=== PATIENT | female | born 1965 | race Caucasian/White ===

== ENCOUNTER 2021-06-28 12:38 | Inpatient (IN) | payer OTHER ==
[~2021-06-28] VITALS: Ht 162.6 cm; Wt 75.8 kg
[2021-06-28 13:04] LABS: HEMATOCRIT 43.5 % (36-48); MEAN CORPUSCULAR HEMOGLOBIN 33.1 pg (27.0-33.0); MEAN CORPUSCULAR HGB CONC 33.6 g/dL (32.0-36.0); MEAN CORPUSCULAR VOLUME 98.6 fL (79-99); PLATELET COUNT (AUTO) 486 K/uL (130-400); RED BLOOD CELL COUNT(AUTO) 4.41 MIL/uL (4.00-5.50); RED CELL DISTRIBUTION WIDTH 12.6 % (11.0-15.5); WHITE BLOOD COUNT (AUTO) 15.7 K/uL (4.8-10.8)
[2021-06-28 13:21] LABS: CARBON DIOXIDE 27 mmol/L (21-32); CHLORIDE 101 mmol/L (101-111); CREATININE 0.7 mg/dL (0.5-1.5); GLOMERULAR FILTR. RATE CALC 92 mL/min (>60); GLUCOSE,RANDOM 97 mg/dL (70-105); POTASSIUM 4.1 mmol/L (3.5-5.1); SODIUM SERUM 138 mmol/L (136-145); UREA NITROGEN, BLOOD 8 mg/dL (7-18)
[2021-06-28 13:31] LABS: ALANINE AMINOTRANSFERASE 34 U/L (12-78); ALBUMIN 2.7 g/dL (3.5-5.0); ASPARTATE AMINOTRANSFERASE 19 U/L (10-37); BILIRUBIN,TOTAL 0.6 mg/dL (0.2-1.0); CREATINE KINASE, TOTAL 16 U/L (21-232); MYOGLOBIN 22 ng/mL (10-92); TOTAL PROTEIN, SERUM 7.4 g/dL (6.0-8.3)
[2021-06-28 13:32] LABS: LYMPHOCYTES % (MANUAL) 16 % (22-44); MAN.DIFF COMMENT-IMPRESSION MANUAL DIFFERENTIAL; MONOCYTES % (MANUAL) 3 % (2-9); PLATELET MORPHOLOGY COMMENT MARKED INCREASE; SEGMENTED NEUTROPHILS % 81 % (40-70)
[2021-06-28] MEDS ORDERED: IPRATROPIUM/ALBUTEROL SULFATE 3 ML SOLUTION IH ONE (16:00)
[2021-06-28] MEDS ORDERED: AZITHROMYCIN 500MG VIAL IVPB ONE (16:00)
[2021-06-28] MEDS ORDERED: 0.9% NACL 250ML IVPB ONE (16:00)
[2021-06-28] MEDS ORDERED: CEFTRIAXONE 1G VIAL IVP ONE (16:00)
[2021-06-28] MEDS ORDERED: AZITHROMYCIN 500MG+NS 250ML 250 ML IV ONE (16:18)
[2021-06-28 16:47] LABS: ABG BASE EXCESS 1.1 mmol/L (-2.0-3.0); ABG HCO3 23.6 mmol/L (21.0-28.0); ABG OXYGEN SATURATION 93.7 % (95.0-99.0); ABG PCO2 32 mmHg (32-45)
[2021-06-28] MEDS: CEFTRIAXONE 1G VIAL IVP SCH (17:30)
[2021-06-28] MEDS: FUROSEMIDE 20MG VIAL IV SCH (18:41)
[2021-06-28] MEDS: SOLU-MEDROL 40MG VIAL IVP SCH (18:41)
[2021-06-28] MEDS ORDERED: IBUPROFEN 400 MG TABLET ONE (18:46)
[2021-06-28] MEDS: IPRATROPIUM/ALBUTEROL SULFATE 3 ML SOLUTION IH SCH (19:45)
[2021-06-28 20:26] LABS: AMPHET/METH SCREEN,URINE NEGATIVE (NEGATIVE); BARBITURATE SCREEN, URINE NEGATIVE (NEGATIVE); BENZODIAZEPINES SCREEN,URINE NEGATIVE (NEGATIVE); CANNABINOID SCREEN,URINE NEGATIVE (NEGATIVE); COCAINE SCREEN,URINE NEGATIVE (NEGATIVE); OPIATE SCREEN,URINE NEGATIVE (NEGATIVE); PHENCYCLIDINE SCREEN,URINE NEGATIVE (NEGATIVE)
[2021-06-28 23:30] VITALS: BP 170/74
[2021-06-29] MEDS: IPRATROPIUM/ALBUTEROL SULFATE 3 ML SOLUTION IH SCH ×5 (00:24→23:02)
[2021-06-29] MEDS ORDERED: MORPHINE 2 MG SYG IVP ONE (02:00)
[2021-06-29 04:00] VITALS: BP 147/94
[2021-06-29] MEDS: FUROSEMIDE 20MG VIAL IV SCH ×2 (06:26→17:38)
[2021-06-29 08:34] LABS: BASOPHILS % (AUTO) 0.2 % (0.0-5.0); HEMATOCRIT 41.3 % (36-48); LYMPHOCYTES % (AUTO) 5.4 % (21.0-51.0); MEAN CORPUSCULAR HEMOGLOBIN 33.3 pg (27.0-33.0); MEAN CORPUSCULAR HGB CONC 33.4 g/dL (32.0-36.0); MEAN CORPUSCULAR VOLUME 99.8 fL (79-99); MONOCYTES % (AUTO) 1.9 % (3.0-13.0); NEUTROPHILS % (AUTO) 91.7 % (40.0-77.0); PLATELET COUNT (AUTO) 455 K/uL (130-400); RED BLOOD CELL COUNT(AUTO) 4.14 MIL/uL (4.00-5.50); RED CELL DISTRIBUTION WIDTH 12.5 % (11.0-15.5)
[2021-06-29 08:55] LABS: CREATININE 0.9 mg/dL (0.5-1.5); MAGNESIUM 2.1 mg/dL (1.80-2.40)
[2021-06-29] MEDS ORDERED: AZITHROMYCIN 500MG VIAL IVPB SCH (09:00)
[2021-06-29] MEDS ORDERED: 0.9% NACL 250ML 250 ML ONE (09:48)
[2021-06-29] MEDS ORDERED: AZITHROMYCIN 500MG+NS 250ML 250 ML IV ONE (09:48)
[2021-06-29] MEDS: SOLU-MEDROL 40MG VIAL IVP SCH (09:53)
[2021-06-29] MEDS: AZITHROMYCIN IVPB SCH (10:09)
[2021-06-29] MEDS: NACL 0.9% IVPB SCH (10:09)
[2021-06-29] MEDS ORDERED: COMPOUND IV REFRIGERATED 1 EACH IVSOLN MISC PRN (10:30)
[2021-06-29] MEDS ORDERED: IOHEXOL 350 MG/ML 100ML INFUS..BTL IV ONE (11:50)
[2021-06-29 13:13] VITALS: BP 162/91
[2021-06-29 17:12] VITALS: BP 169/91
[2021-06-29] MEDS: CEFTRIAXONE 1G VIAL IVP SCH (17:37)
[2021-06-29] MEDS: IBUPROFEN 200 MG TAB PO PRN (17:43)
[2021-06-29] MEDS ORDERED: HYDRALAZINE 20MG/ML VIAL IV PRN (20:00)
[2021-06-29] MEDS ORDERED: ZOLPIDEM TARTRATE 5 MG TAB PO PRN (21:00)
[2021-06-30] VITALS: BP 141/90
[2021-06-30] MEDS: IBUPROFEN 200 MG TAB PO PRN ×2 (03:44→20:24)
[2021-06-30 04:00] VITALS: BP 128/92
[2021-06-30] MEDS: FUROSEMIDE 20MG VIAL IV SCH ×2 (06:00→17:30)
[2021-06-30] MEDS: IPRATROPIUM/ALBUTEROL SULFATE 3 ML SOLUTION IH SCH ×2 (06:00→18:20)
[2021-06-30 06:13] LABS: BASOPHILS % (AUTO) 0.2 % (0.0-5.0); HEMATOCRIT 38.4 % (36-48); LYMPHOCYTES % (AUTO) 4.8 % (21.0-51.0); MEAN CORPUSCULAR HGB CONC 33.3 g/dL (32.0-36.0); MONOCYTES % (AUTO) 4.2 % (3.0-13.0); NEUTROPHILS % (AUTO) 89.5 % (40.0-77.0); PLATELET COUNT (AUTO) 460 K/uL (130-400); RED BLOOD CELL COUNT(AUTO) 3.88 MIL/uL (4.00-5.50); RED CELL DISTRIBUTION WIDTH 12.5 % (11.0-15.5); WHITE BLOOD COUNT (AUTO) 29.2 K/uL (4.8-10.8)
[2021-06-30 06:19] LABS: CREATININE 0.7 mg/dL (0.5-1.5)
[2021-06-30 07:41] LABS: THYROID STIMULATING HORMONE 0.67 uIU/mL (0.36-3.74)
[2021-06-30 08:14] VITALS: BP 140/76
[2021-06-30] MEDS: SOLU-MEDROL 40MG VIAL IVP SCH (08:52)
[2021-06-30] MEDS: NACL 0.9% IVPB SCH (08:52)
[2021-06-30] MEDS: AZITHROMYCIN IVPB SCH (08:52)
[2021-06-30 11:29] VITALS: BP 162/106
[2021-06-30] MEDS: INSULIN HUMULIN R 100 UNIT/ML 3ML SQ SCH ×3 (11:56→20:22)
[2021-06-30 12:38] LABS: HEMOGLOBIN A1C 6.1 % (4.0-6.0)
[2021-06-30] MEDS: CEFTRIAXONE 2GM VIAL IVP SCH (15:58)
[2021-06-30 16:23] VITALS: BP 149/79
[2021-06-30] MEDS: ALPRAZOLAM 0.5 MG TABLET PO PRN ×2 (17:38→22:02)
[2021-06-30 19:39] LABS: TOTAL PROTEIN, SERUM 7.1 g/dL (6.0-8.3)
[2021-06-30 21:00] LABS: APPEARANCE BODY FLUID CLOUDY (CLEAR); BODY FLUID WBC 570 /cu. mm.; COLOR,BODY FLUID DARK YELLOW (LT YELLOW); SPECIMENTYPE,BODY FLUID PLEURAL; TOTAL VOLUME,BODY FLUID 830 mL
[2021-06-30 21:01] LABS: BODY FLUID RBC 6305 /cu. mm.
[2021-06-30 21:09] LABS: BF LYMPHOCYTE 51 %; BF OTHER CELLS 16
[2021-06-30 21:23] VITALS: BP 139/85
[2021-06-30] MEDS ORDERED: MORPHINE 2 MG SYG ONE (22:00)
[2021-06-30] MEDS ORDERED: ALPRAZOLAM 0.5 MG TABLET PO ONE (22:00)
[2021-07-01] VITALS (7 sets, daily range): BP systolic 114–141; BP diastolic 74–95
[2021-07-01] MEDS: IPRATROPIUM/ALBUTEROL SULFATE 3 ML SOLUTION IH SCH ×5 (00:39→23:51)
[2021-07-01 04:51] LABS: BASOPHILS % (AUTO) 0.2 % (0.0-5.0); HEMATOCRIT 40.1 % (36-48); MEAN CORPUSCULAR HEMOGLOBIN 32.6 pg (27.0-33.0); MEAN CORPUSCULAR HGB CONC 32.7 g/dL (32.0-36.0); MEAN CORPUSCULAR VOLUME 99.8 fL (79-99); MONOCYTES % (AUTO) 5.7 % (3.0-13.0); NEUTROPHILS % (AUTO) 85.3 % (40.0-77.0); PLATELET COUNT (AUTO) 422 K/uL (130-400); RED BLOOD CELL COUNT(AUTO) 4.02 MIL/uL (4.00-5.50); RED CELL DISTRIBUTION WIDTH 12.3 % (11.0-15.5); WHITE BLOOD COUNT (AUTO) 22.9 K/uL (4.8-10.8)
[2021-07-01] MEDS: FUROSEMIDE 20MG VIAL IV SCH ×2 (04:51→18:33)
[2021-07-01 05:07] LABS: CREATININE 0.7 mg/dL (0.5-1.5); POTASSIUM 3.7 mmol/L (3.5-5.1)
[2021-07-01] MEDS: INSULIN HUMULIN R 100 UNIT/ML 3ML SQ SCH ×5 (06:10→21:00)
[2021-07-01] MEDS: AZITHROMYCIN IVPB SCH (10:02)
[2021-07-01] MEDS: NACL 0.9% IVPB SCH (10:02)
[2021-07-01] MEDS: ALPRAZOLAM 0.5 MG TABLET PO PRN ×3 (10:07→22:38)
[2021-07-01] MEDS: CEFTRIAXONE 2GM VIAL IVP SCH (18:33)
[2021-07-01] MEDS ORDERED: MAG/ALUM/SIMETH 30 ML UDCUP ONE (22:20)
[2021-07-01] MEDS: MORPHINE 2 MG SYG IVP PRN (22:25)
[2021-07-01] MEDS ORDERED: MAG/ALUM/SIMETH 30 ML UDCUP PO ONE (22:30)
[2021-07-02 03:10] VITALS: BP 112/69
[2021-07-02] MEDS: FUROSEMIDE 20MG VIAL IV SCH ×2 (04:33→16:54)
[2021-07-02] MEDS: MORPHINE 2 MG SYG IVP PRN (04:44)
[2021-07-02 05:23] LABS: BASOPHILS % (AUTO) 0.6 % (0.0-5.0); EOSINOPHILS % (AUTO) 0.4 % (0.0-8.0); HEMATOCRIT 42.6 % (36-48); LYMPHOCYTES % (AUTO) 17.8 % (21.0-51.0); MEAN CORPUSCULAR HEMOGLOBIN 32.7 pg (27.0-33.0); MEAN CORPUSCULAR HGB CONC 33.6 g/dL (32.0-36.0); MEAN CORPUSCULAR VOLUME 97.5 fL (79-99); NEUTROPHILS % (AUTO) 71.8 % (40.0-77.0); PLATELET COUNT (AUTO) 444 K/uL (130-400); RED BLOOD CELL COUNT(AUTO) 4.37 MIL/uL (4.00-5.50); RED CELL DISTRIBUTION WIDTH 12.5 % (11.0-15.5); WHITE BLOOD COUNT (AUTO) 16.5 K/uL (4.8-10.8)
[2021-07-02] MEDS: INSULIN HUMULIN R 100 UNIT/ML 3ML SQ SCH ×7 (05:34→21:00)
[2021-07-02 05:39] LABS: CREATININE 0.7 mg/dL (0.5-1.5); POTASSIUM 3.6 mmol/L (3.5-5.1)
[2021-07-02] MEDS: IPRATROPIUM/ALBUTEROL SULFATE 3 ML SOLUTION IH SCH ×3 (06:50→18:57)
[2021-07-02] MEDS: FAMOTIDINE 20MG VIAL IV SCH ×2 (07:55→20:10)
[2021-07-02 08:00] VITALS: BP 122/64
[2021-07-02] MEDS: AZITHROMYCIN IVPB SCH (08:02)
[2021-07-02] MEDS: NACL 0.9% IVPB SCH (08:02)
[2021-07-02] MEDS: ALPRAZOLAM 0.5 MG TABLET PO PRN ×3 (08:11→23:23)
[2021-07-02 11:55] VITALS: BP 110/67
[2021-07-02 16:00] VITALS: BP 121/49
[2021-07-02] MEDS: CEFTRIAXONE 2GM VIAL IVP SCH (16:53)
[2021-07-02] MEDS: MAG/ALUM/SIMETH 30 ML UDCUP PO PRN (19:29)
[2021-07-02 20:00] VITALS: BP 114/79
[2021-07-03] VITALS (11 sets, daily range): BP systolic 98–134; BP diastolic 45–78
[2021-07-03] MEDS: IPRATROPIUM/ALBUTEROL SULFATE 3 ML SOLUTION IH SCH ×4 (00:06→18:19)
[2021-07-03] MEDS: FUROSEMIDE 20MG VIAL IV SCH (04:28)
[2021-07-03] MEDS: INSULIN HUMULIN R 100 UNIT/ML 3ML SQ SCH ×7 (05:57→21:23)
[2021-07-03 08:06] LABS: HEMATOCRIT 45.1 % (36-48); MEAN CORPUSCULAR HEMOGLOBIN 32.9 pg (27.0-33.0); MEAN CORPUSCULAR HGB CONC 33.9 g/dL (32.0-36.0); RED BLOOD CELL COUNT(AUTO) 4.65 MIL/uL (4.00-5.50); RED CELL DISTRIBUTION WIDTH 12.7 % (11.0-15.5)
[2021-07-03 08:31] LABS: ALBUMIN 2.8 g/dL (3.5-5.0); BILIRUBIN,TOTAL 0.6 mg/dL (0.2-1.0); CREATININE 0.8 mg/dL (0.5-1.5); POTASSIUM 3.9 mmol/L (3.5-5.1); TOTAL PROTEIN, SERUM 7.6 g/dL (6.0-8.3)
[2021-07-03] MEDS: FAMOTIDINE 20MG VIAL IV SCH ×2 (09:09→21:23)
[2021-07-03] MEDS: ALPRAZOLAM 0.5 MG TABLET PO PRN ×2 (09:09→22:56)
[2021-07-03] MEDS: AZITHROMYCIN IVPB SCH (09:11)
[2021-07-03] MEDS: NACL 0.9% IVPB SCH (09:11)
[2021-07-03] MEDS: MAG/ALUM/SIMETH 30 ML UDCUP PO PRN (09:15)
[2021-07-03] MEDS: CEFTRIAXONE 2GM VIAL IVP SCH (16:58)
[2021-07-03] MEDS: FUROSEMIDE 40 MG TABLET PO SCH (17:00)
[2021-07-03] MEDS: MORPHINE 2 MG SYG IVP PRN (20:46)
[2021-07-04] VITALS: BP 117/77
[2021-07-04 04:00] VITALS: BP 104/67
[2021-07-04] MEDS: INSULIN HUMULIN R 100 UNIT/ML 3ML SQ SCH (05:41)
[2021-07-04] MEDS: IPRATROPIUM/ALBUTEROL SULFATE 3 ML SOLUTION IH SCH ×3 (06:56→11:34)
[2021-07-04] MEDS ORDERED: KETOROLAC 15MG/ML VIAL (15MG/ML) IV SCH (07:30)
[2021-07-04 08:00] VITALS: BP 100/56
[2021-07-04] MEDS ORDERED: LEVO500T89 PO (08:34)
[2021-07-04] MEDS ORDERED: FURO40TA7 PO (08:51)
[2021-07-04] MEDS: AZITHROMYCIN IVPB SCH (08:54)
[2021-07-04] MEDS: FAMOTIDINE 20MG VIAL IV SCH (08:54)
[2021-07-04] MEDS: FUROSEMIDE 40 MG TABLET PO SCH (08:54)
[2021-07-04] MEDS: NACL 0.9% IVPB SCH (08:54)
[2021-07-04 11:44] VITALS: BP 106/71
== END 2021-07-04 12:40 | disposition home or self-care (01) | DRG 291 ==
LOC: EDH 12:38 → EDHIP 12:39 → 3CH 22:29
PROVIDERS: ADMIT Internal Medicine; ATTEND Internal Medicine
PROC: 5A09357 Assistance with Respiratory Ventilation, Less than 24 Consecutive Hours, Continuous Positive Airway Pressure (ICD-10-PCS; principal; 2021-06-28)
PROC: 0W9B3ZZ Drainage of Left Pleural Cavity, Percutaneous Approach (ICD-10-PCS; 2021-06-30)
PROC: 0W9B3ZZ Drainage of Left Pleural Cavity, Percutaneous Approach (ICD-10-PCS; 2021-07-03)
DX: I11.0 Hypertensive heart disease with heart failure (principal); I50.33 Acute on chronic diastolic (congestive) heart failure; J96.01 Acute respiratory failure with hypoxia; J18.9 Pneumonia, unspecified organism; J44.0 Chronic obstructive pulmonary disease with (acute) lower respiratory infection; J44.1 Chronic obstructive pulmonary disease with (acute) exacerbation; J98.11 Atelectasis; J91.8 Pleural effusion in other conditions classified elsewhere; E66.01 Morbid (severe) obesity due to excess calories; F17.200 Nicotine dependence, unspecified, uncomplicated; Z20.822 Contact with and (suspected) exposure to COVID-19; E78.00 Pure hypercholesterolemia, unspecified; Z68.33 Body mass index [BMI] 33.0-33.9, adult; Z79.899 Other long term (current) drug therapy; Z95.810 Presence of automatic (implantable) cardiac defibrillator; Z83.3 Family history of diabetes mellitus
CPT/HCPCS: 32554; 36415; 36600; 71045; 71275; 80048; 80053; 80061; 80305; 82550; 82803; 82945; 82948; 83036; 83605; 83615; 83735; 83874; 83880; 83986; 84145; 84155; 84157; 84443; 84484; 85025; 85027; 85378; 87040; 87071; 87116; 87205; 87206; 87635; 87804; 89051; 93005; 93306; 93356; 93970; 94640; 94664; 94760; C9803; G0378; J0456; J0696; J1815; J1885; J1940; J2920; J3490; J7050; Q9967

== ENCOUNTER 2021-11-08 07:30 | Emergency (ER) | payer OTHER ==
[~2021-11-08] VITALS: Ht 160 cm; Wt 83.9 kg
[~2021-11-08 07:30] MED LIST: FURO40TA7 PO; LEVO500T90 PO
[2021-11-08 07:31] VITALS: BP 146/76
[2021-11-08] MEDS ORDERED: NEOMY SULF/BACITRA/POLYMYXIN B 1 EACH PACKET TP ONE (08:25)
[2021-11-08] MEDS ORDERED: TETANUS/DIPHTHERIA TOXOID [ADULT] 0.5 ML VIAL IM ONE (08:30)
[2021-11-08] MEDS ORDERED: ACETAMINOPHEN 325 MG TAB PO ONE (08:30)
== END 2021-11-08 10:11 | disposition home or self-care (01) ==
LOC: EDH 07:30
DX: S92.535A Nondisplaced fracture of distal phalanx of left lesser toe(s), initial encounter for closed fracture (principal); S90.511A Abrasion, right ankle, initial encounter; I11.9 Hypertensive heart disease without heart failure; E78.00 Pure hypercholesterolemia, unspecified; W01.0XXA Fall on same level from slipping, tripping and stumbling without subsequent striking against object, initial encounter; Y93.89 Activity, other specified; Y92.89 Other specified places as the place of occurrence of the external cause; Y99.8 Other external cause status
CPT/HCPCS: 73660; 90471; 90714